=== PATIENT | male | born 1995 | race Caucasian/White ===

== ENCOUNTER 2023-09-16 19:11 | Emergency (ER) | payer OTHER, SELFPAY ==
[2023-09-16 19:17] VITALS: BP 138/99; PULSE 88; RESP 21; TEMP 36.2; O2SAT 100
--- NOTE | 2023-09-16 19:38 | ED.NAVMDI ---
HPI - Nausea/Vomiting/Diarrhea General Chief complaint: Nausea/Vomiting/Diarrhea Stated complaint: Heart Burn/Sore Throat Time Seen by Provider: 09/16/23 19:26 Source: patient and RN notes reviewed Mode of arrival: ambulatory Limitations: no limitations History of Present Illness HPI Narrative: Patient presents today with a 2 month history of burning to his mid tongue. He has also been having severe acid reflux symptoms with burning to his esophagus and upper chest. He had an appointment for same symptoms in June and was told he likely had postnasal drainage. He has been taking Tums which helped slightly and was started on Pepcid, which seemed to make his symptoms worse. He stop the Pepcid over the last couple of days. He has made some dietary changes in the last couple of weeks and has been mainly eating some blander foods. Related Data Allergies Allergy/AdvReac Type Severity Reaction Status Date / Time No Known Allergies Allergy Verified 09/16/23 19:27 Review of Systems Review of Systems: CONSTITUTIONAL: Denies body aches, fever, chills, or sweats. EYES: Denies visual changes, redness, or discharge. ENT: Denies rhinorrhea, congestion, sore throat, or otalgia.+ tongue burning CARDIOVASCULAR: Denies chest pain, palpitations, or edema. RESPIRATORY: Denies cough or dyspnea. GASTROINTESTINAL: Denies abdominal pain, nausea, vomiting, or diarrhea.+ acid reflux GENITOURINARY: Denies dysuria or hematuria. SKIN: Denies rash, itching, or wounds. MUSCULOSKELETAL: Denies back pain, joint pain, or myalgia. NEUROLOGIC: Denies headache, numbness, tingling, or weakness. PSYCH: Denies depression or anxiety. [facility] Social History Social History Smoking status: Never smoker Second hand tobacco smoke exposure: No Substance use: never Substance use type: does not use Do You Feel Safe in your Home?: Yes Lack of Transportation: No Lack of Food: Never True Current Housing: I Have Housing Concerned About Future Housing: No Difficulty Paying Gas/Electric Bills: No Difficulty Paying for Meds: No Currently Unemployed: No Education: High School Diploma/GED Comments At time of signature, I have reviewed and agree with nursing past medical, surgical, social and family history unless otherwise noted. Please see nursing chart for further information. There is no relevant family history pertinent to the presenting complaint Exam Narrative: GENERAL: Well-appearing, well-nourished, and in no acute distress. HEAD: Normocephalic, atraumatic. EYES: EOMI. No redness or drainage. Conjunctivae normal. ENT: Mucous membranes pink and moist. Throat normal. Uvula midline. Tongue normal. NECK: Normal AROM. Supple. No lymphadenopathy. CHEST: No respiratory distress. HEART: Regular rate and rhythm. No murmur appreciated. ABDOMEN: Soft, nontender, nondistended, normal active bowel sounds. EXTREMITIES: Normal range of motion. No edema. SKIN: Warm, dry, no rash. Capillary refill normal. Normal skin turgor. NEURO: No focal deficits. Alert and oriented x3. Gait steady. PSYCH: Normal affect. No signs of depression or anxiety. Course Course Level of Care: Express Care Visit Vital Signs Vital signs: Vital Signs Temperature 97.1 F L 09/16/23 19:17 Pulse Rate 88 09/16/23 19:17 Respiratory Rate 21 H 09/16/23 19:17 Blood Pressure 138/99 H 09/16/23 19:17 Pulse Oximetry 100 09/16/23 19:17 Oxygen Delivery Room Air 09/16/23 19:17 Temperature 97.1 F L 09/16/23 19:17 Pulse Rate 88 09/16/23 19:17 Respiratory Rate 21 H 09/16/23 19:17 Blood Pressure 138/99 H 09/16/23 19:17 Pulse Oximetry 100 09/16/23 19:17 Oxygen Delivery Room Air 09/16/23 19:17 Reviewed MDM - Nausea/Vomiting/Diarrhea MDM Narrative Medical decision making narrative: Patient will be started on a course of Carafate to decrease his GERD symptoms. Instructe
== END 2023-09-16 19:47 | disposition home or self-care (01) ==
PROVIDERS: Emergency Provider Nurse Practitioner
DX: K21.9 Gastro-esophageal reflux disease without esophagitis (principal)
CPT/HCPCS: 99213; G0463

== ENCOUNTER 2023-12-02 00:15 | Day surgery (SDC) | payer OTHER, SELFPAY ==
[2023-11-16 13:15] VITALS: BMI 30.3
[2023-12-02 07:21] VITALS: BP 134/79; PULSE 79; RESP 20; TEMP 36.1; O2SAT 100; BMI 28.4
[2023-12-02] MEDS: LACTATED RINGERS 1,000 ML 150 ML IV CONT (07:42)
--- NOTE | 2023-12-02 08:15 | PM.HPGS ---
History of Present Illness History of Present Illness Consent: Risks, benefits, and alternatives have been discussed and questions answered. Patient agrees to proceed with procedure. Chief complaint: Epigastric pain Narrative: Heri Randolph is a 28 year old male with epigastric pain for 2 months, finally better with omeprazole but never had egd Review of Systems Review of Systems: All systems reviewed & are unremarkable except as noted in HPI and below [facility] Social History Social History Smoking status: Never smoker Second hand tobacco smoke exposure: No Alcohol intake: never Substance use: never Substance use type: does not use Do You Feel Safe in your Home?: Yes Lack of Transportation: No Lack of Food: Never True Current Housing: I Have Housing Concerned About Future Housing: No Difficulty Paying Gas/Electric Bills: No Difficulty Paying for Meds: No Currently Unemployed: No Education: High School Diploma/GED Living arrangements: with family Spiritual care concerns: No Meds Home Medications and Allergies Home Medications Medication Instructions Recorded Confirmed Type omeprazole 40 mg capsule,delayed 40 mg PO DAILY #30 caps 10/28/23 12/02/23 Rx release Lactobacillus 1 cap PO DAILY 11/16/23 12/02/23 History acidophilus-Bifidobac.animalis 2.5 billion cell capsule (Daily Probiotic) Allergies Allergy/AdvReac Type Severity Reaction Status Date / Time Penicillins AdvReac Hives Verified 12/02/23 07:20 Vital Signs Vital Signs - 24 hr 12/02/23 07:21 Temperature 97 F L Pulse Rate 79 Respiratory Rate 20 Blood Pressure 134/79 Pulse Oximetry 100 Oxygen Delivery Room Air Exam Const: General: comfortable and no acute distress HENMT: Face/Nose/Sinus: Normal nares present Eyes: General: appearance normal, both eyes and all related structures Neck: Neck: no JVD Resp: Auscultation: clear to auscultation bilaterally Cardio: Rate: regular rate Rhythm: regular rhythm GI: Inspection: non-distended GI Palp: Yes Soft to palpation Skin: General skin exam: normal color Neuro: General: gait normal Speech: normal speech Extrem: General: normal to inspection Psych: Mental Status: mental status grossly normal Assessment and Plan Assessment and plan (1) Epigastric pain: Code(s): R10.13 - Epigastric pain Status: Acute Assessment and Plan: egd with bx better with omeprazole
[2023-12-02 08:23] VITALS: BP 98/64; PULSE 63; RESP 13; O2SAT 97
[2023-12-02 08:33] VITALS: BP 98/63; PULSE 62; RESP 19; O2SAT 97
[2023-12-02 08:43] VITALS: BP 108/70; PULSE 63; RESP 17; O2SAT 97
== END 2023-12-02 08:49 | disposition home or self-care (01) ==
PROVIDERS: PCP Family Medicine; Visit Provider Internal Medicine Gastroenterology
PROC: 0DJ08ZZ Inspection of Upper Intestinal Tract, Via Natural or Artificial Opening Endoscopic (ICD-10-PCS; CPT 43235; principal; 2023-12-02 08:30)
DX: K29.50 Unspecified chronic gastritis without bleeding (principal)
CPT/HCPCS: 43239; 88305; J2704; J7120

== ENCOUNTER 2024-07-16 15:36 | Outpatient (CLI) | payer OTHER, SELFPAY ==
[2024-07-16 16:03] LABS: Basophils Absolute Auto 0.1 K/mm3 (0.0-0.1); Eosinophils Absolute Auto 0.2 K/mm3 (0-0.3); Eosinophils Percent Auto 1.9 % (0-4.4); Hematocrit 52.3 % (42.0-52.0); Hemoglobin 17.4 g/dL (14.0-18.0); Immature Granulocyte Absolute 0.03 K/mm3 (0.00-0.031); Immature Granulocyte Percent A 0.4 % (0-0.5); Lymphocytes Percent Auto 28.2 % (18.3-44.2); Mean Corpuscular HGB Conc 33.3 g/dl (32-36); Mean Corpuscular Hemoglobin 26.8 pg (26-34); Mean Corpuscular Volume 80.5 fl (80-100); Mean Platelet Volume 9.3 fl (7.4-10.4); Monocytes Absolute Auto 0.5 K/mm3 (0.1-0.6); Monocytes Percent Auto 6.8 % (2.6-8.5); Neutrophils Absolute Auto 4.8 K/mm3 (1.3-6.7); Neutrophils Percent Auto 61.7 % (45.5-73.1); Platelet Count Result 290 k/mm3 (150-375); Red Cell Distribution Width 13.1 % (11.5-14.5); White Blood Count 7.8 K/mm3 (4.5-10.0)
[2024-07-16 16:44] LABS: Iron 76 ug/dL (49-181)
[2024-07-16 16:49] LABS: Alanine Aminotransferase 30 U/L (6-50); Albumin Level 5.4 g/dL (3.5-5.1); Alkaline Phosphatase 43 U/L (38-126); Anion Gap 14 mmol/L (4-12); Aspartate Amino Transferase 25 U/L (17-59); Bilirubin,Total 0.9 mg/dL (0.2-1.3); Blood Urea Nitrogen 19 mg/dL (9-20); CRP < 0.5 mg/dL (<1.0); Calcium 9.9 mg/dL (8.4-10.2); Carbon Dioxide 27 mmol/L (22-30); Chloride 99 mmol/L (98-107); Estimated Glomerular Filt Rate > 60; Glucose 91 mg/dL (65-110); Potassium 3.8 mmol/L (3.4-5.0); Sodium 140 mmol/L (137-145)
[2024-07-16 16:56] LABS: Percent Iron Saturation 19 % (20-50)
--- OUTSIDE RECORDS SUMMARY | 2024-07-16 17:03 | XMS_ITS | Encounter Summary ---
Author Organization [facility] Address [facility] [place] [address] Care Team Providers Care Lockstitch Waistline Joiner Name Role Phone Unavailable Primary Care Provider Unavailabl e Encounter Details Date Type Department Care Team (Late st Contact Info) Description 09/23/[address] 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
--- OUTSIDE RECORDS SUMMARY | 2024-07-16 17:03 | XMS_ITS | Clinical Summary ---
[facility] Address [address] [facility] [place] [address] Care Team Providers Care Imaging Scheduler Name Role Phone Unavailable Primary Care Provider Unavailabl e Allergies Active Allergy Reactions Criticality Noted Date Comments Penicillins Hives High 07/16/2024 Medications omeprazole (PriLOSEC) 40 mg Capsule, Delayed Release(E.C.) Take 1 Capsule by mouth daily. 07/09/2024 Active Lactobacillus acidophilus (PROBIOTIC ACIDOPHILUS ORAL) Take by mouth. Active MELATONIN ORAL Take 5 mg by mouth daily. Active Active Problems No known active problems Encounters Date Type Department Care Team Description 07/16/2024 3:00 PM CDT Office Visit [facility] [place] [address] [facility] [address] [place] [address] Matthew Llanos MD Elevated ferritin (Primary Dx); Erythrocytosis from Last 3 Months Family History Medical History Relation Name Comments No Known Problems Brother 1 No Known Problems Brother 2 No Known Problems Brother 3 No Known Problems Child Diabetes Father No Known Problems Mother Relation Name Status Comments Brother 1 Alive Brother 2 Alive Brother 3 Alive Child Alive Father Alive Mother Alive Social History Tobacco Use Types Packs/Day Years Used Date Smoking Tobacco: Never Smokeless Tobacco: Never Tobacco Cessation:Counseling Given: Not Answered Alcohol Use Standard Drinks/Week Comments Yes 0 (1 standard drink = 0.6 oz pur e alcohol) Occasionally Sex and Gender Information Value Date Recorded Sex Assigned at Not on file 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 Gender Identity Not on file Sexual Orientation Not on file Last Filed Vital Signs Vital Sign Reading Time Taken Comments Blood Pressure 128/78 07/16/2024 2:53 PM CDT Pulse 92 07/16/2024 2:53 PM CDT Temperature 36.5 C (97.7 F) 07/16/2024 2:53 PM CDT Respiratory Rate 17 07/16/2024 2:53 PM CDT Oxygen Saturation 98% 07/16/2024 2:53 PM CDT Inhaled Oxygen Concentration - - Weight 96.3 kg (212 lb 6.4 oz) 07/16/2024 2:53 P M CDT Height 177.8 cm (5' 10 ) 07/16/2024 2:53 PM CDT Body Mass Index 30.48 07/16/2024 2:53 PM CDT Plan of Treatment Upcoming Encounters Date Type Department Care Team (Late st Contact Info) Description 07/30/2024 2:45 PM CDT Office Visit [facility] - [place] [address] [place] [address] Matthew Llanos MD [address] [facility] [address] [place] [address] Health Maintenance Due Date Last Done Comments DTAP/TDAP/TD VACCINES (1 - Tdap) 2014 HEPATITIS B VACCINES (1 of 3 - 19+ 3-dose series) 2014 INFLUENZA VACCINE (#1) 2023 Preventative Visit- Commercial 04/18/2024 HPV VACCINES Aged Out No longer eligi ble based on patient's age to complete this topic Insurance CIG C20
--- OUTSIDE RECORDS SUMMARY | 2024-07-16 17:03 | XMS_ITS | Clinical Summary ---
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 Gender Identity Not on file Sexual Orientation Not on file Plan of Treatment Health Maintenance Due Date Last Done Comments Annual Physical 1998 Hepatitis C 2013 DTaP, Tdap and Td Vaccines ( 1 - Tdap) 2014 Hepatitis B Vaccines (1 of 3 - 19+ 3-dose series) 2014 COVID-19 Vaccine (2023-2 5 season) 2023 HPV Vaccines Aged Out No longer eligi ble based on patient's age to complete this topic Meningococcal B Vaccine Aged Out No l onger eligible based on patient's age to complete this topic Meningococcal Vaccine Aged Out No tom carol eligible based on patient's age to complete this topic Pneumococcal Vaccine: Pediat rics (0 to 5 Years) and At-Risk Patients (6 to 64 Years) Aged Out No longer eligible b ased on patient's age to complete this topic RSV Immunizations Under 20 Months Aged Out No longer eligible based on patient's age to complete this topic
--- OUTSIDE RECORDS SUMMARY | 2024-07-16 17:03 | XMS_ITS | Encounter Summary ---
Author Organization [facility] Address [address] [place] [address] Care Team Providers Care Computer Field Technician Name Role Phone Unavailable Primary Care Provider Unavailabl e Reason for Referral * Laboratory Services (Routine) - Open Specialty Diagnoses / Procedures Referred By Iam savage Referred To Contact Diagnoses Elevated ferritin Procedures HEMOCHROMATOSIS GENOTYPE Matthew Llanos MD [address] [place] [address] [employer] [place] [phone] Phone: tel: fax: Referral ID Status Reason Start Date Expiration Date Visits Re quested Visits Authorized [id number] Open 07/16/2024 08/16/2025 1 1 * Laboratory Services (Routine) - Open Specialty Diagnoses / Procedures Referred By Iam savage Referred To Contact Diagnoses Erythrocytosis Procedures JAK2 MUTATION Matthew Llanos MD [address] [place], [place] [address] [address] [address] Phone: tel: fax: Referral ID Status Reason Start Date Expiration Date Visits Re quested Visits Authorized [id number] Open 07/16/2024 08/16/2025 1 1 Reason for Visit * Reason Comments Establish Care Encounter Details Date Type Department Care Team (Late st Contact Info) Description 07/16/2024 3:00 PM CDT Office Visit [facility] On[facility] and Hematology - [place] [facility] [address] [facility] [address] [place] [address] Matthew Llanos MD [facility] [employer] [address] [place] [phone] Elevated ferritin (Primary Dx); Erythrocytosis Social History Tobacco Use Types Packs/Day Years Used Date Smoking Tobacco: Never Smokeless Tobacco: Never Tobacco Cessation:Counseling Given: Not Answered Alcohol Use Standard Drinks/Week Comments Yes 0 (1 standard drink = 0.6 oz pur e alcohol) Occasionally Sex and Gender Information Value Date Recorded Sex Assigned at Not on file 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 Problem list There is no problem list on file for this patient. Previous TREATMENT ? Measurable Disease ? Reason for Visit Heir Randolph is a 29 y.o. male who was referred for consultation for erythrocytosis and iron overload. History of present illness This is a pleasant 29-year-old male with history of gastroesophageal reflux disease referred to me for erythrocytosis. He denies any history of smoking. He snores a lot and going to have a sleep study soon. He denies use of testosterone replacement therapy. He is lost 30 pound weight in last 6-month duration. He denies any history of thromboembolic events including stroke and heart attack. Patient labs from March 2024 showed hematocrit of 52.7. Ferritin was elevated at 482. There is no family history of hemochromatosis. Drinks alcohol occasionally. No other new complaint. Past Medical History No past medical history on file. Gastroesophageal reflux disease Surgical History Past Surgical History: Procedure Laterality Date HX HAND SURGERY Finger ligament repair 2008 HX TYMPANOSTOMY 1998 Medications Current Outpatient Medications Medication Sig Dispense Refill omeprazole (PriLOSEC) 40 mg Capsule, Delayed Release(E.C.) Take 1 Capsule by mouth daily. Lactobacillus acidophilus (PROBIOTIC ACIDOPHILUS ORAL) Take by mouth. MELATONIN ORAL Take 5 mg by mouth daily. No current facility-administered medications for this visit. Allergies Allergies Allergen Reactions Penicillins Hives Immunizations: There is no immunization history on file for this patient. Family History Family History Problem Relation Name Age of Onset Diabetes Father No Known Problems Mother No Known Problems Brother No Known Problems Brother No Known Problems Brother No Known Problems Child Social History Social History Tobacco Use Smoking status: Never Smokeless tobacco: Never Substance Use Topics Alcohol use: Yes Comment: Occasionally Review of Systems Constitutional: Patient did not mention fever; no night sweats; no anorexia; no weight loss; no fatique NEENT: Patient did not mention headache; no change in vision; no change in hearing; no sore throat;no dysphagia Respiratory: Patient did not mention shortness of breath; no pleuritic chest pain; no cough; no hemoptysis Cardiac: Patient did not mention cardiac-like chest pain; no palpitations; no orthopnea; no PND; noDOE GI: Patient did not mention abdominal pain; no nausea; no vomiting; no diarrhea; no hematochezia; no melena : Patient did not mention dysuria; no frequency; no hesitancy; no hematuria PROFESSOR OF HISTORICAL THEOLOGY: Musculosketetal: Patient did not mention bone pain; no arthralgia; no joint swelling; no myalgia; Skin: Patient did not mention pruritis; no rash; no petechiae; no ecchymoses Endocrine: Patient did not mention polydipsia; no polyuria; no unusual weight gain Neuro: Patient did not mention headache; no change in vision; no sensory changes; no muscle weakness; no confusion; no seizures Psych: Patient did not mention anxiety; no depression; Physical Exam Vitals: As per nursing note Constitutional: Well developed, well nourished, no acute distress, non-toxic appearance Teeth and gum. No signs of infection or swelling. Eyes: PERRL, conjunctiva normal HEENT: Atraumatic, external ears normal, nose normal, oropharynx moist, no pharyngeal exudates. no sinus tenderness Neck- normal range of motion, no tenderness, supple Cardiovascular: Normal rate, normal rhythm, no murmurs, no gallops, no rubs GI: Soft, nondistended, normal bowel sounds, nontender, no splenomegaly, no hepatomegaly, no mass, no rebound, no guarding : No costovertebral angle tenderness Musculoskeletal: No edema, no tenderness, no deformities. Back- no tenderness Integument: Well hydrated, no rash, Digits and nails inspection normal Lymphatic: No lymphadenopathy noted Neurologic: Alert & oriented x 3, CN 2-12 normal, normal motor function, normal sensory function, no focal deficits noted Psychiatric: Speech and behavior appropriate ? labs No results found for this or any previous visit (from the past 24 hours). Labs from March 2024 showed WBC 5.8 hemoglobin 17.1 hematocrit 52.7 platelet 335,000 labs from January 2024 showed iron 88 saturation 25 and ferritin 482. Pathology ? Imaging & Other Studies Performance Status? Assessment / Plan: ? Erythrocytosis. Patient is a pleasant 29-year-old male who has been in good health excepthistory of gastroesophageal reflux disease. He denies any history of smoking and COPD. Denies any use of testosterone replacement therapy. He has lost 30 pound weight in 6 months. He complain of snoring a lot and going to have sleep study done soon. I have discussed the differential diagnosis of erythrocytosis along with complication in detail. I will order the workup that will include CBC with differential, CMP, erythropoietin level and JAK2 mutation. I will start him on baby aspirin 81 mg a day. Depending on the labs we will decide about phlebotomy to keep hematocrit less than 50. I have answered all the questions to patient's satisfaction. Elevated ferritin. He denies any family history of hemochromatosis. He denies any heavy alcohol use. I will order the workup including iron studies soluble transferrin receptor and hemochromatosis testing. Possible sleep apnea. He is going to have sleep study done soon. GERD. He is on omeprazole. Thank you very much for allowing me to participate in Heri Randolph's evaluation and management. Please feel free to contact if I can be of any further assistance in your patient???s care requiring hematology or oncology evaluation. Sincerely, ? ? Matthew Llanos M.D. cell TOBACCO COUNSELING He is not a tobacco/nicotine user. Matthew Llanos MD ,07/16/2024 4:14 PM ? Total time spent 60 minutes, two third of the total time spent counseling patient [id number]. CC:? documented in this encounter Plan of Treatment Upcoming Encounters Date Type Department Care Team (Late st Contact Info) Description 07/30/2024 2:45 PM CDT Office Visit [facility] Oncology and Hematology - [place] [address] [facility] [address] [place] [address] Matthew Llanos MD [address] [facility] [address] [place] [address] Scheduled Orders Name Type Priority Associated Diagnoses Orde r Schedule CBC WITH DIFFERENTIAL Lab Stat Elevated ferritin Expected: 07/16/2024, Expires: 07/16/2025 COMPREHENSIVE METABOLIC PANEL Lab Stat Elevated ferritin Expected: 07/16/2024, Expires: 07/16/2025 ERYTHROPOIETIN LEVEL Lab Routine Erythrocytosis Expected: 07/16/2024, Expires: 07/16/2025 FERRITIN Lab Routine Elevated ferritin Expected: 07/16/2024, Expires: 07/16/2025 IRON, TIBC, AND PERCENT SATURATION Lab Routine Elevated ferritin Expected: 07/16/2024, Expires: 07/16/2025 TRANSFERRIN RECEPTOR TFR SOLUBLE Lab Routine Elevated ferritin Expected: 07/16/2024, Expires: 07/16/2025 C-REACTIVE PROTEIN Lab Routine Erythrocytosis Expected: 07/16/2024, Expires: 07/16/2025 JAK2 MUTATION Lab Routine Erythrocytosis Expected: 07/16/2024, Expires: 07/16/2025 HEMOCHROMATOSIS GENOTYPE Lab Routine Elevated ferritin Ordered: 07/16/2024 documented as of this encounter Visit Diagnoses Diagnosis Elevated ferritin- Primary Other abnormal blood chemistry Erythrocytosis Reserved for inherently not codable concepts WITHOUT codable children documented in this encounter
[2024-07-18 13:43] LABS: Erythropoietin (EPO) 4.4 mIU/mL (2.6-18.5)
== END 2024-07-16 15:37 | disposition home or self-care (01) ==
LOC: ANHLAB 15:37
PROVIDERS: PCP Family Medicine; Visit Provider Internal Medicine Hematology & Oncology
DX: D75.1 Secondary polycythemia (principal); R79.89 Other specified abnormal findings of blood chemistry; E83.19 Other disorders of iron metabolism
CPT/HCPCS: 36415; 80053; 81256; 81270; 82668; 82728; 83540; 83550; 84238; 85025; 86140

== ENCOUNTER 2024-09-27 09:26 | Outpatient (CLI) | payer OTHER, SELFPAY ==
--- NOTE | 2024-10-24 08:00 | P.SLEEP_ITS ---
Sleep Study Date of Study: 09/27/24 Ordering Provider: Jodi Alatorre PA-C Interpreting Physician: Jennifer Zimmerman DO Sleep Study Type: Polysomnogram Height: 1.78 m Weight: 92.986 kg Body Mass Index: 29.4 Neck Circumference (inches): 16 [place]: 10 Reason for Sleep Study Daytime hypersomnia Sleep History The patient is a 29-year-old male that had a sleep study ordered by his primary care for evaluation of sleep apnea. The patient works in finance. He rarely awakens from sleep short of breath. He occasionally awakens at night with heartburn, belching, or cough. He frequently snores, and it is frequently loud enough that others complain. He frequently has trouble sleeping when others have a cold. He rarely wakes up gasping for air throughout the night. He denies having breathing problems at night observed by himself or others. He denies sweating excessively at night. He denies having heart palpitations or irregular heartbeats during the night. He occasionally falls asleep during the day but never while driving. He denies sleep paralysis, cataplexy, and hypnagogic hallucinations. He rarely has trouble at school or work due to sleepiness. He denies feeling afraid of going to sleep. He rarely has nightmares. He rarely remembers his dreams. He occasionally has thoughts racing through his mind. He rarely feels sad, depressed, or anxious. He denies having muscular tension. He rarely notices parts of his body jerk. He denies kicking during the night. He denies having crawling and aching feelings in his legs and denies having leg pain during the night. He occasionally grinds his teeth during sleep but rarely awakens with morning jaw pain. He is rarely bothered by pain during the day and rarely awakened by pain during the night. He occasionally wakes up feeling stiff in the morning. He occasionally wakes up with sore or achy muscles. He occasionally wakes up with pain in the neck, spine, or other joints. He goes to bed at 10 p.m. on weekdays and between 10 p.m. to midnight on the weekends. He is able to fall asleep within a few minutes. He does not typically wake up throughout the night, but if he does, he is able to fall back asleep within a few minutes. He wakes up at 6:30 a.m. on weekdays and between 7 to 8 a.m. on the weekends. He typically gets 7 to 8 hours of sleep per night. He will stay in bed for 20 to 30 minutes after waking up in the morning. He currently lives with his and child. He denies consuming any caffeinated beverages within two hours of bedtime. He denies engaging in physical exercise before bedtime. He will watch television before falling asleep. He denies taking naps in the afternoon or the evening. He consumes one caffeinated beverage at most per day. He denies tobacco, alcohol, and recreational drug use. [facility] Social History Social History Smoking status: Never smoker Second hand tobacco smoke exposure: No Alcohol intake: never Substance use: never Substance use type: does not use Do You Feel Safe in your Home?: Yes Lack of Transportation: No Lack of Food: Never True Current Housing: I Have Housing Concerned About Future Housing: No Difficulty Paying Gas/Electric Bills: No Difficulty Paying for Meds: No Currently Unemployed: No Education: High School Diploma/GED Living arrangements: with family Spiritual care concerns: No Medications Home Medications ?Medication ?Instructions ?Recorded ?Confirmed ?Type Lactobacillus 1 cap PO DAILY 11/16/23 07/04/24 History acidophilus-Bifidobac.animalis 2.5 billion cell capsule (Daily Probiotic) omeprazole 40 mg capsule,delayed See Rx Instructions .Route 07/09/24 Rx release .COMPLEX #30 caps Sleep Procedure A full night polysomnogram using the [employer] multi-channel system recorded the standard physiologic parameters including EEG, EOG, submentalis EMG, anterior tibialis EMG, EKG, body position, nasal and oral airflow using nasal pressure sensor and thermistor.? Respiratory parameters of chest and abdominal movements were recorded with Respiratory Inductance Plethysmography belts. Oxygen saturation was recorded by pulse oximetry. Video monitoring was also performed. Sleep stages, periodic limb movements, and EEG arousals were scored in 30 second epochs according to the criteria of the AASM Scoring Manual. The Apnea-Hypopnea Index was calculated using CMS guidelines for definition of hypopnea with 4% O2 desaturations while scoring respiratory events. Sleep Architecture The total recording time was 432.5 minutes.? The total sleep time was 402.0 minutes. Sleep latency was 22.9 minutes. REM latency was 103.0 minutes. Sleep efficiency was 93.0%. The patient had 13 awakenings for an awakening index of 1.9. Wake after sleep onset time was 8.0 minutes. The patient spent 11.5 minutes, 2.9% of total sleep time in Stage N1. The patient spent 178.0 minutes, 44.3% in Stage N2. The patient spent 98.5 minutes, 24.5% in Stage N3. The patient spent 114.0 minutes, 28.4% in Stage REM sleep. Respiratory Analysis The patient had 5 hypopneas, 5 mixed apneas, and 6 central apneas for an overall Apnea Hypopnea Index of 2.4. The REM Apnea Hypopnea Index was 4.2. The NREM Apnea Hypopnea Index was 2.3. The patient had a Central Apnea Hypopnea Index of 0.9. There was no evidence of Kai-Velarde Respirations. Arousals There were 50 total arousals for an arousal index of 7.5. There were 28 spontaneous arousals for an index of 4.2. There were 7 arousals due to respiratory events for an index of 1.0. There was 1 arousal due to periodic limb movements for an index of 0.1.? There were 12 arousals due to isolated limb movements for an index of 1.8. Periodic Limb Movements The patient had 32 isolated limb movements with an index of 4.8. The patient had 6 periodic limb movements with an index of 0.9. Patient had a total of 38 limb movements with a total limb movement index of 5.7. Oximetry Data The patient had an average oxygen saturation of 93.9% in sleep with a minimum oxygen saturation of 85.0% and a maximum oxygen saturation of 97.0%. The patient had 10 oxygen desaturations that were 4% or greater resulting in an Oxygen Desaturation Index of 1.5.? The patient spent 0.7 minutes, 0.2% of total sleep time with an oxygen saturation below 88%. Snoring Profile Snoring was present intermittently throughout the study. Cardiac Profile The EKG showed normal sinus rhythm with occasional PVCs.?The patient had an average pulse rate of 55.3 bpm with a minimum pulse of rate of 43.0 bpm and a maximum pulse rate of 84.0 bpm.? EEG Profile No signs of seizure activity seen. Assessment and Plan Assessment and Plan (1) Snoring: Code(s): R06.83 - Snoring Status: Acute Assessment and Plan: The patient had an overall AHI of 2.4 with desaturation down to 85%. This is not consistent with sleep disordered breathing. In general, snoring can be improved by smoking cessation, weight loss, alcohol avoidance several hours before bedtime, elevating the head of the bed by 6-9 inches and sleeping in the lateral position. For patients with chronic nasal congestion, we suggest a trial of intranasal glucocorticoids. For patients who continue to snore despite conservative therapy and relief of any nasal congestion, we suggest a trial of an external nasal dilator such as Breathe Right strips. Data The data obtained during this sleep study is adequate for interpretation. Certification This sleep study has been reviewed by a board certified sleep medicine physician.
[2024-10-24 09:38] VITALS: BMI 29.4
== END 2024-09-28 05:59 | disposition home or self-care (01) ==
LOC: ANHCSM 09:31
PROVIDERS: PCP Family Medicine; Visit Provider Student in an Organized Health Care Education/Training Program
DX: G47.39 Other sleep apnea (principal); G47.10 Hypersomnia, unspecified; R06.83 Snoring
CPT/HCPCS: 95810